=== PATIENT | male | born 1965 | race Caucasian/White ===

== ENCOUNTER 2017-10-03 17:05 | Emergency (ER) | payer MEDICARE ==
[~2017-10-03] VITALS: Ht 188 cm; Wt 104.5 kg
[~2017-10-03 17:05] MED LIST: CIPROFLOXACN500 MG PO; EC ASPIRIN325 M1 PO; ERYTHROMYCI3 OS; IBUPROFEN600 MG PO; KEFLEX500 M1 PO; LISINOP/HCTZ1 TAB PO; LORTAB 5 OR; MOBIC7.5 MG PO; MS CONTIN30 MG PO; NO MEDS; PERCOCET 5/321 COMBO PO; ROXICODONE30 MG; TYLENOL 8 HR650 MG OR
[2017-10-03 17:33] VITALS: BP 138/80
== END 2017-10-03 17:35 | disposition home or self-care (01) ==
LOC: ED 17:05
PROC: 0HQKXZZ Repair Right Lower Leg Skin, External Approach (ICD-10-PCS; principal; 2017-10-03)
DX: I83.891 Varicose veins of right lower extremity with other complications (principal); F17.210 Nicotine dependence, cigarettes, uncomplicated; G89.29 Other chronic pain; M54.9 Dorsalgia, unspecified; M54.2 Cervicalgia

== ENCOUNTER 2017-10-20 06:44 | Emergency (ER) | payer MEDICARE ==
[~2017-10-20] VITALS: Ht 188 cm; Wt 100.0 kg
[2017-10-20] MEDS ORDERED: OXYCODONE HCL5 MG PO (06:51)
[2017-10-20] MEDS ORDERED: AMOXICILLIN500 MG PO (07:04)
[2017-10-20 07:21] VITALS: BP 145/85
== END 2017-10-20 07:24 | disposition home or self-care (01) ==
LOC: ED 06:44
DX: J02.9 Acute pharyngitis, unspecified (principal); F17.210 Nicotine dependence, cigarettes, uncomplicated

== ENCOUNTER 2018-10-27 15:52 | Emergency (ER) | payer MEDICARE ==
[~2018-10-27] VITALS: Ht 188 cm; Wt 86.4 kg
[~2018-10-27 15:52] MED LIST changes: +AMOXICILLIN500 MG PO; +OXYCODONE20 M1 PO
[2018-10-27] MEDS ORDERED: OXYCONTIN10 MG PO (16:15)
[2018-10-27 16:19] LABS: HEMATOCRIT 41.3 % (39.0-50.0); IMMATURE GRANULOCYTES 0.4 % (0.0-5.0); MEAN CELL VOLUME 95.4 fL CALC (80.0-100.0); MEAN CORPUSCULAR HGB 31.4 pG CALC (26.0-32.0); MEAN CORPUSCULAR HGB CONC 32.9 g/L CALC (32.0-36.0); NEUT# 3.19 thou/uL (1.82-7.42); RED BLOOD COUNT 4.33 mill/uL (4.70-6.10); RED CELL DISTRI WIDTH 13.2 % (11.5-15.5)
[2018-10-27 16:31] LABS: HEMOGLOBIN 13.6 g/dl (14.0-18.0)
[2018-10-27 16:35] LABS: ALBUMIN 4.4 g/dL (3.2-5.0); ALKALINE PHOSPHATASE 77 u/l (38-126); ANION GAP 13 (6-22 (CALC)); BILIRUBIN, TOTAL 0.7 mg/dL (0.0-1.4); BUN 14 mg/dL (9-20); BUN/CREATININE RATIO 17 (12-20 (CALC)); CARBON DIOXIDE 26 mmol/l (22-30); CHLORIDE 109 mmol/l (95-108); CREATININE 0.8 mg/dL (0.7-1.3); GFR > 60 ML/MIN (>=60 (CALC)); GFR FOR AFR.AMER. > 60 ML/MIN (>=60 (CALC)); POTASSIUM 4.2 mmol/l (3.5-5.1); SGOT/AST 21 u/l (17-59); SODIUM 144 mmol/l (137-146); TOTAL PROTEIN 6.8 g/dL (6.3-8.2)
[2018-10-27] MEDS ORDERED: MORPHINE SUL60 MG PO (16:40)
[2018-10-27 17:53] VITALS: BP 149/84
== END 2018-10-27 20:40 | disposition home or self-care (01) ==
LOC: ED 15:52
PROVIDERS: Family Medicine
DX: E86.0 Dehydration (principal); R53.83 Other fatigue; R41.0 Disorientation, unspecified; R53.1 Weakness; R42 Dizziness and giddiness; R51 Headache; F17.200 Nicotine dependence, unspecified, uncomplicated; Z72.89 Other problems related to lifestyle; X30.XXXA Exposure to excessive natural heat, initial encounter; Y93.89 Activity, other specified; Y92.007 Garden or yard of unspecified non-institutional (private) residence as the place of occurrence of the external cause